=== PATIENT | female | born 1955 | race Caucasian/White ===

== ENCOUNTER → 2020-04-29 11:33 | Outpatient (CLI) | payer MEDICARE, OTHER, SELFPAY ==
--- NOTE | ~2020-04-29 | MM_ITS ---
EXAMINATION: MM screening [facility] BI w audrey HISTORY: Screening mammogram, family history of breast cancer in her sister. TECHNIQUE: Craniocaudal and mediolateral oblique 3-D tomosynthesis images were obtained and synthetic 2-D images were generated. CAD analysis was submitted and interpreted. COMPARISON: 03/02/2019, 01/13/2018, 12/28/2016 BREAST PARENCHYMAL COMPOSITION: The breasts are almost entirely fatty. FINDINGS: There is no evidence of suspicious mass, calcification, or architectural distortion to sugg est malignancy in either breast. There has been no suspicious interval change. IMPRESSION: 1. No mammographic evidence of malignancy. 2. Recommend routine screening mammography in one year. BI-RADS Category 1: Negative Reviewed, dictated and finalized at location A.
== END ==
PROVIDERS: PCP Internal Medicine; Visit Provider Internal Medicine
DX: Z12.31 Encounter for screening mammogram for malignant neoplasm of breast (principal)
CPT/HCPCS: 77063; 77067

== ENCOUNTER → 2020-05-08 09:02 | Outpatient (CLI) | payer MEDICARE, OTHER, SELFPAY ==
--- NOTE | ~2020-05-08 | XR_ITS ---
EXAMINATION: XR lumbar spine min 4V EXAM DATE: 05/08/2020 09:36 INDICATION: Failed spinal cord stimulator . TECHNIQUE: Lumber spine frontal, lateral, bilateral oblique projections. Coned down frontal and lat eral L5-S1 lumbar projections for interpretation. Comparison is made to prior examination from 009. FINDINGS: There is moderate thoracolumbar dextroscoliosis. Spine stimulator device identified with le ads projecting over the spinal canal, appear to be entering at the L1-2 level. There is about 7 mm an terolisthesis L4 on L5 without spondylolysis suspected. There is about 3 mm retrolisthesis L2 on L3. There is moderate disc disease at L1-2 and L5-S1. Mild to moderate at the other lumbar levels. There is moderate to severe lumbar facet arthropathy. Mild loss of the vertebral body heights from T11 thro ugh L1, probably chronic mild compression fractures. Sacrum, sacroiliac joints, sacral arcuate lines are intact. IMPRESSION: 1. Moderate thoracolumbar dextroscoliosis. 2. L4-5 grade 1-2 anterolisthesis. 3. Moderate to severe facet arthropathy. Reviewed, dictated and finalized at location B. DISTRIBUTION SYSTEM OPERATOR
--- NOTE | ~2020-05-08 | XR_ITS ---
EXAMINATION: XR thoracic spine 3V EXAM DATE: 05/08/2020 09:36 INDICATION: Failed spinal cord stimulator . TECHNIQUE: Frontal and lateral projections of the thoracic spine as well as lateral swimmers projecti on of the upper thoracic spine for interpretation. Comparison is made to prior examination from 016. FINDINGS: There is moderate thoracolumbar dextroscoliosis and mild to moderate lower thoracic levosc oliosis. There are 2 spinal stimulator leads, one at the inferior endplate of T6 level and the other at mid T8 level, projecting over the spinal canal. Mild to moderate disc disease at T9-T10 and modera te at T10-11 with some endplate osteophytes. There is aortic arteriosclerosis. Paraspinal soft tissue is unremarkable. IMPRESSION: 1. Spine stimulator leads at T6, T8 levels. 2. Thoracal lumbar scoliosis. 3. Mild to moderate lower thoracic spondylosis. Reviewed, dictated and finalized at location B. EDUCATIONAL AIDE
== END ==
PROVIDERS: PCP Internal Medicine; Visit Provider Pain Medicine Pain Medicine
DX: T85.192A Other mechanical complication of implanted electronic neurostimulator of spinal cord electrode (lead), initial encounter (principal); M41.85 Other forms of scoliosis, thoracolumbar region; M43.16 Spondylolisthesis, lumbar region; M47.816 Spondylosis without myelopathy or radiculopathy, lumbar region; Z96.82 Presence of neurostimulator; M47.814 Spondylosis without myelopathy or radiculopathy, thoracic region
CPT/HCPCS: 72072; 72110

== ENCOUNTER 2020-06-11 10:16 | Outpatient (CLI) | payer MEDICARE, OTHER, SELFPAY ==
--- NOTE | 2020-06-11 | ECG_ITS ---
Measurements Intervals Roe Rate: 65 P: -7 TN: 174 QRS: -4 QRSD: 99 T: 7 QT: 388 QTc: 404 Interpretive Statements SINUS RHYTHM INCOMPLETE RIGHT BUNDLE BRANCH BLOCK VOLTAGE CRITERIA FOR LVH BORDERLINE ECG Electronically Signed On 06-11-2020 10:47:50 APPLICATIONS PROCESSOR by Otoniel Briscoe D.O.
== END 2020-06-11 10:17 | disposition home or self-care (01) ==
LOC: ANHLAB 10:21
PROVIDERS: PCP Internal Medicine; Visit Provider Nurse Practitioner Family
DX: Z51.81 Encounter for therapeutic drug level monitoring (principal); Z79.899 Other long term (current) drug therapy; I45.10 Unspecified right bundle-branch block
CPT/HCPCS: 93005

== ENCOUNTER → 2020-12-30 10:58 | Outpatient (CLI) | payer MEDICARE, OTHER, SELFPAY ==
--- NOTE | ~2020-12-30 | DEXA_ITS ---
Bone Density Report Name: Sheryl Damico Age: 65 Sex: Female Ethnicity: White Date of : 1955 Indication: osteopenia; height loss; postmenopausal Referring Provider: Trace Perkins Study: Bone densitometry was performed. Exam Date: December 30, 2020 Accession number: [id number] Bone Density: Region BMD T-score Z-score Classification AP Spine (L3, L4) 0.948 -1.4 0.6 Osteopenia Femoral Neck (Left) 0.644 -1.8 -0.3 Osteopenia Total Hip (Left) 0.872 -0.6 0.7 Normal Femoral Neck (Right) 0.653 -1.8 -0.2 Osteopenia Total Hip (Right) 0.875 -0.5 0.7 Normal Total Hip Mean 0.874 -0.6 0.7 Normal World Health Organization criteria for BMD impression classify patients as: Normal (T-score at or above -1.0), Osteopenia (T-score between -1.0 and -2.5), or Osteoporosis (T-score at or below -2.5). 10-year Fracture Risk(1): Major Osteoporotic Fracture 9.5% Hip Fracture 1.3% Reported Risk Factors: [place] (), Neck BMD=0.644, BMI=35.3 (1) FRAX(R) Version 3.08. Fracture probability calculated for an untreated patient. Fracture probability may be lower if the patient has received treatment. Previous Exams: Region Exam Age BMD T-score BMD Change BMD Change Date g/cm2 vs Baseline vs Previous AP Spine(L3, L4) 12/30/2020 65 0.948 -1.4 -0.117* 0.024 02/21/2018 62 0.924 -1.6 -0.141 -0.054 12/24/2015 60 0.978 -1.1 -0.087* -0.050* 12/31/2008 53 1.028 -0.7 -0.037* 0.021 10/07/2007 52 1.008 -0.8 -0.058 -0.058 11/06/2005 50 1.065 -0.3 Total Hip(Left) 12/30/2020 65 0.872 -0.6 -0.266* -0.036 02/21/2018 62 0.908 -0.3 -0.231 -0.124 12/24/2015 60 1.032 0.7 -0.107* 0.042* 12/31/2008 53 0.990 0.4 -0.149* -0.100 10/07/2007 52 1.090 1.2 -0.049 -0.049 11/06/2005 50 1.139 1.6 Total Hip(Right) 12/30/2020 65 0.875 -0.5 -0.212* 0.009 02/21/2018 62 0.866 -0.6 -0.221 -0.091 12/24/2015 60 0.957 0.1 -0.130* -0.002 12/31/2008 53 0.960 0.1 -0.128* -0.118 10/07/2007 52 1.077 1.1 -0.010 -0.010 11/06/2005 50 1.087 1.2 *Denotes significance at 95% confidence level, LSC for AP Spine = 0.022 g/cm2, LSC for Total Hip = 0.027 g/cm2 Clinical Information Provided by Patient: Has used t
== END ==
PROVIDERS: PCP Internal Medicine; Visit Provider Obstetrics & Gynecology
DX: Z78.0 Asymptomatic menopausal state (principal); M85.89 Other specified disorders of bone density and structure, multiple sites
CPT/HCPCS: 77080

== ENCOUNTER 2021-03-26 11:53 | Outpatient (CLI) | payer MEDICARE, OTHER, SELFPAY | END 2021-03-26 11:54 | disposition home or self-care (01) | LOC: ANHAUDASC 11:54 | PROVIDERS: PCP Internal Medicine; Referring Provider Physician Assistant; Visit Provider Internal Medicine | DX: H90.3 Sensorineural hearing loss, bilateral (principal) | CPT/HCPCS: 92557; 92567 ==

== ENCOUNTER 2021-05-21 09:00 | Outpatient (RCR) | payer SELFPAY | END 2021-06-11 23:59 | disposition home or self-care (01) | LOC: ANHAUDASC 09:00 | PROVIDERS: PCP Internal Medicine; Visit Provider Internal Medicine | DX: Z46.1 Encounter for fitting and adjustment of hearing aid (principal) | CPT/HCPCS: 99199; V5261 ==

== ENCOUNTER → 2021-09-08 10:17 | Outpatient (CLI) | payer MEDICARE, OTHER, SELFPAY ==
--- NOTE | ~2021-09-08 | MM_ITS ---
EXAMINATION: MM screening jarett BI w audrey HISTORY: Screening TECHNIQUE: Craniocaudal and mediolateral oblique 3-D tomosynthesis images were obtained and synthetic 2-D images were generated. CAD analysis was submitted and interpreted. COMPARISON: Comparison to multiple prior studies sequentially, with oldest reviewed study dated 12/23. BREAST PARENCHYMAL COMPOSITION: The breasts are almost entirely fatty. FINDINGS: There is no evidence of suspicious mass, calcification, or architectural distortion to sugg est malignancy in either breast. There has been no suspicious interval change. IMPRESSION: 1. No mammographic evidence of malignancy. 2. Recommend routine screening mammography in one year. BI-RADS Category 1: Negative Reviewed, dictated and finalized at location A. DEVELOPER
== END ==
PROVIDERS: PCP Internal Medicine; Visit Provider Internal Medicine
DX: Z12.31 Encounter for screening mammogram for malignant neoplasm of breast (principal)
CPT/HCPCS: 77063; 77067

== ENCOUNTER 2023-09-21 10:22 | Outpatient (CLI) | payer MEDICARE, OTHER, SELFPAY ==
--- NOTE | ~2023-09-21 | MM_ITS ---
EXAMINATION: MM screening [facility] BI w audrey HISTORY: Screening TECHNIQUE: Craniocaudal and mediolateral oblique 3-D tomosynthesis images were obtained and synthetic 2-D images were generated. CAD analysis was submitted and interpreted. COMPARISON: Comparison to multiple prior studies sequentially, with oldest reviewed study dated 12/28. BREAST PARENCHYMAL COMPOSITION: Not dense: There are scattered areas of fibroglandular density. FINDINGS: There is no evidence of suspicious mass, calcification, or architectural distortion to sugg est malignancy in either breast. There has been no suspicious interval change. IMPRESSION: 1. No mammographic evidence of malignancy. 2. Recommend routine screening mammography in one year. BI-RADS Category 1: Negative Reviewed, dictated and finalized at location A.
== END 2023-09-21 10:23 ==
PROVIDERS: PCP Internal Medicine; Visit Provider Nurse Practitioner Obstetrics & Gynecology
DX: Z12.31 Encounter for screening mammogram for malignant neoplasm of breast (principal)
CPT/HCPCS: 77063; 77067

== ENCOUNTER 2023-10-13 10:49 | Outpatient (CLI) | payer MEDICARE, OTHER, SELFPAY ==
--- NOTE | ~2023-10-13 | XR_ITS ---
Left ankle Technique: AP and lateral views were obtained. Clinical History: Osteoarthritis Findings: No acute fracture or dislocation is seen. Osseous alignment is anatomic. Ankle mortise is w ell aligned. There is mild degenerative change of the tibiotalar joint. Soft tissues are otherwise un remarkable. Impression: Mild degenerative change of the tibiotalar joint. Reviewed, dictated and finalized at location . Impression: Mild degenerative change of the tibiotalar joint.
--- NOTE | ~2023-10-13 | XR_ITS ---
Right ankle Technique: AP and lateral views were obtained. Clinical History: Osteoarthritis Findings: No acute fracture or dislocation is seen. Osseous alignment is anatomic. Ankle mortise and other visualized joint spaces are preserved. Soft tissues are otherwise unremarkable. Impression: Unremarkable right ankle. Reviewed, dictated and finalized at location . Impression: Unremarkable right ankle.
--- NOTE | ~2023-10-13 | XR_ITS ---
Left foot Technique: AP, oblique, and lateral views were obtained. Clinical History: Osteoarthritis Findings: No acute fracture or dislocation is seen. Osseous alignment is anatomic. Joint spaces are p reserved without erosive or degenerative change. Soft tissues are unremarkable. Impression: Unremarkable left foot radiographs. Reviewed, dictated and finalized at location . Impression: Unremarkable left foot radiographs.
--- NOTE | ~2023-10-13 | XR_ITS ---
Right foot Technique: AP, oblique, and lateral views were obtained. Clinical History: Osteoarthritis Findings: No acute fracture or dislocation is seen. Osseous alignment is anatomic. There is mild dege nerative change of the first MTP joint and the third and fourth TMT joints. Soft tissues are unremark able. Impression: Mild degenerative changes, as above. Reviewed, dictated and finalized at location M. Impression: Mild degenerative changes, as above.
== END 2023-10-13 10:50 ==
PROVIDERS: PCP Internal Medicine; Visit Provider Internal Medicine
DX: M19.072 Primary osteoarthritis, left ankle and foot (principal); M19.071 Primary osteoarthritis, right ankle and foot
CPT/HCPCS: 73600; 73630

== ENCOUNTER 2024-01-28 14:24 | Outpatient (CLI) | payer MEDICARE, OTHER, SELFPAY ==
--- NOTE | ~2024-01-28 | XR_ITS ---
EXAM: XR knee LT 3V DATE: 01/28/2024 14:36 HISTORY: No injury, anterior, medial pain for 1 week . COMPARISON: None available. FINDINGS: Normal mineralization. No fracture or dislocation. No lytic or blastic lesion. Moderate me dial compartment joint space narrowing and osteophytosis. Mild patellofemoral and lateral compartment osteophytosis. Quadriceps enthesopathy. Loose body over the posterior joint recess. No erosion or pe riosteal change. Soft tissues within normal limits. Small volume knee joint fluid IMPRESSION: Tricompartmental osteoarthritis, moderate in the medial compartment. Loose joint body. Sm all knee joint effusion. Reviewed, dictated and finalized at location K. IMPRESSION: Tricompartmental osteoarthritis, moderate in the medial compartment . Loose joint body. Small knee joint effusion.
== END 2024-01-28 14:25 ==
LOC: MICIMG 14:27
PROVIDERS: PCP Internal Medicine; Visit Provider Internal Medicine
DX: M17.12 Unilateral primary osteoarthritis, left knee (principal); M23.42 Loose body in knee, left knee; M25.462 Effusion, left knee
CPT/HCPCS: 73562

== ENCOUNTER 2024-02-03 12:57 | Outpatient (CLI) | payer MEDICARE, OTHER, SELFPAY | END 2024-02-03 12:58 | PROVIDERS: PCP Internal Medicine; Visit Provider Internal Medicine | DX: M79.671 Pain in right foot (principal); M79.672 Pain in left foot | CPT/HCPCS: 73630 ==

== ENCOUNTER 2024-10-04 09:52 | Outpatient (CLI) | payer MEDICARE, OTHER, SELFPAY ==
--- NOTE | ~2024-10-04 | DEXA_ITS ---
Bone Density Report Name: CHRIS FLORES Age: 69 Sex: Female Ethnicity: White Date of : 1955 Indication: postmenopausal; screening for osteoporosis; height loss; Referring Provider: NUSRAT, PACHECO Chowdhury Study: Bone densitometry was performed. Exam Date: October 04, 2024 Accession number: [id number] Bone Density: Region BMD T-score Z-score Classification AP Spine(L1-L4) 1.087 0.4 2.5 Normal Femoral Neck (Left) 0.707 -1.3 0.5 Osteopenia Total Hip (Left) 0.848 -0.8 0.7 Normal Femoral Neck (Right) 0.689 -1.4 0.4 Osteopenia Total Hip (Right) 0.873 -0.6 0.9 Normal Total Hip Mean 0.860 -0.7 0.8 Normal World Health Organization criteria for BMD impression classify patients as: Normal (T-score at or above -1.0), Osteopenia (T-score between -1.0 and -2.5), or Osteoporosis (T-score at or below -2.5). 10-year Fracture Risk(1): Major Osteoporotic Fracture 9.0% Hip Fracture 1.2% Reported Risk Factors: [place] (), Neck BMD=0.689, BMI=34.7 (1) FRAX(R) Version 3.08. Fracture probability calculated for an untreated patient. Fracture probability may be lower if the patient has received treatment. Clinical Information Provided by Patient: Has used the following medications: Vitamin D, Calcium Patient maximum height was 65.5 Menopause Age: 49 No regular weight bearing exercise Drinks caffeinated beverages Onset of menses at age 15 Number of children 3 Impression: The patient has low bone mass, based on the Right Femoral Neck T-score. The patient has an estimated ten-year risk of hip fracture of 1.2% and an estimated ten-year risk of major fracture of 9%, based on the WHO FRAX algorithm. Discussion: BONE DENSITY IS LOW AT ONE OR MORE SKELETAL SITES. This patient's lowest T-score is low at one or more skeletal sites. It meets the World Health Organization's (WHO) criteria for ?low bone mass? (T-score between -1.0 and -2.5). The patient's 10-year risk of fracture as calculated by FRAX is less than the threshold where pharmacological therapy is recommended by the National Osteoporosis Foundation (NOF). However, all treatment decisions require clinical judgment and consideration of individual patient factors, including patient preferences, comorbidities, previous drug use, risk factors not captured in the FRAX model (e.g., frailty, falls, vitamin D deficiency, increased bone turnover, interval significant decline in bone density) and possible under or overestimation of fracture risk by FRAX. The patient should follow a healthful lifestyle (good nutrition with adequate calcium and vitamin D, and appropriate weight-bearing exercise). Follow-Up: Consider repeating this study in 2 to 3 years to reassess this patient's status, or sooner if there is some new clinical indication. Reported by: MATEUS on 10/04/2024 10:26:00 AM. Reviewed, dictated and finalized at location A. [facility]
--- OUTSIDE RECORDS SUMMARY | 2024-10-04 10:53 | XMS_ITS | Continuity of Care Document ---
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 Location Location Details Encounter Type Encounter Number Reason For Visit Attending Provider ADM Date DC Date Status Disposition Source [facility] Outpatient Encounter [id number] 5 03/09 [facility] ALYCIA N
--- OUTSIDE RECORDS SUMMARY | 2024-10-04 10:53 | XMS_ITS ---
Author Organization [facility] Address [facility] [address] [address] Care Team Providers Care Hockey Instructor Name Role Phone Jose Raul Fregoso DO Primary Care Provider Alvaro Sneed Unavailable [phone] Migration, Provider Unavailable Unavailable REASON FOR VISIT EMR-Chip Social History Sex Assigned At : Social History Observation Description Sex Assigned At Female Encounters Encounter Location Date Provider Diagnosis [facility] [place] [id number] [facility] [address] [address] 11/20/2023 Provider Migration Plan Of Treatment Next Appt Details Provider Name:Alvaro leonard, 11/24/2024 09:45:00 AM, [address] [facility] [address], [facility] [address], [place], [address], Progress Notes * MONTEZDENYS HELLEROB: 5 (68 yo F)Acc No.[id number]:11/20/2023 Patient: CHRIS LEVY :1955 A ge:68 Y S ex:Female Address:[address] [place] [address], [id number] Subjective: * Chief Complaints: * E MR-Chip * Medical History: * Surgical History: * Hospitalization/Major Diagno stic Procedure: * Medications: Objective: * Vitals: * Physical Examination: Assessment: Plan: * Treatment: * Procedure Codes: * true * Date: Generated for Printi ng/Faxing/eTransmitting on: 0 10/04/2024 10:52 AM CDT
--- OUTSIDE RECORDS SUMMARY | 2024-10-04 10:53 | XMS_ITS ---
Author Organization [facility] [employer] Address [address] [facility] [address] [place] [address] Care Team Providers Care Corner Bead Operator Name Role Phone Jose Raul Fregoso DO Primary Care Provider UnavailAlvaro Lopez Unavailable [phone] Allergies No Known Allergies REASON FOR VISIT follow up visit, medication evaluation Medications Medication SIG (Take, Route, Frequency, Duration) Notes Start Date End Date Status Pantoprazole Sodium 40 MG Oral 11/17/2023 Active Valsartan 320 MG 1 tablet Oral Once a day 11/17/19 24 Active Simvastatin 40 MG Oral 11/17/2023 A ctive buPROPion HCl ER (XL) 300 MG 1 tablet every morning Oral Once a day for 90 days take with 150mg tablet- total dose 450mg 11/17/2023 Active buPROPion HCl ER (XL) 150 MG 1 tablet in the morning Oral Once a day for 90 days 11/17/2023 Active Cymbalta 60 MG 1 capsule Oral Once a day for 90 days 11/17/2023 Active Carvedilol 25 MG Oral 11/17/2023 Ac tive Gabapentin 300 MG Oral 11/17/2023 A ctive Lisinopril 10 MG Oral 11/17/2023 Ac tive Social History Sex Assigned At : Social History Observation Description Sex Assigned At Female Vital Signs Blood pressure systolic 184 mm Hg 05/30/20 24 Blood pressure diastolic 91 mm Hg 024 Heart Rate 65 /min 05/30/2024 Height 64.00 in 05/30/2024 Weight 200.0 lbs 05/30/2024 BMI 34.33 kg/m2 05/30/2024 Height-cm 162.56 cm 05/30/2024 Weight-kg 90.72 kg 05/30/2024 Encounters Encounter [facility] [address] [place] [address] 05/30/2024 Alvaro Quevedo Major depressive disorder, recurrent, mild F33.0 and Generalized anxiety disorder F41.1 Assessments Encounter Date Diagnosis (ICD Code) Assessment Notes Treatment Notes Treatment Clinical Notes Section Notes 05/30/2024 Major depressive disorder, recurrent, mild (ICD-10 - F33.0) 1. Adjustment Disorder with Depressed Mood: - Patient is experiencing grief due to the loss of her dog and moving from her long-time home. - Able to function in daily activities but reports feeling emotional when discussing her dog. Plan: - Continue current medications: bupropion XL 450 mg and duloxetine 60 mg daily. - Monitor for any worsening of depressive symptoms and consider adjusting medication if needed. - Encourage the patient to seek support from friends and family during this difficult time. 2. Medication Refill and Follow-up: - Patient will be in [place] for an extended period and requires medication refills. Plan: - Send prescriptions to [facility] for bupropion XL and duloxetine. - Schedule a follow-up appointment in 6 months or sooner if the patient experiences any worsening of symptoms or has concerns about medications. 05/30/2024 Generalized anxiety disorder (ICD-10 - F41.1) stable 1. Adjustment Disorder with Depressed Mood: - Patient is experiencing grief due to the loss of her dog and moving from her long-time home. - Able to function in daily activities but reports feeling emotional when discussing her dog. Plan: - Continue current medications: bupropion XL 450 mg and duloxetine 60 mg daily. - Monitor for any worsening of depressive symptoms and consider adjusting medication if needed. - Encourage the patient to seek support from friends and family during this difficult time. 2. Medication Refill and Follow-up: - Patient will be in [place] for an extended period and requires medication refills. Plan: - Send prescriptions to [facility] for bupropion XL and duloxetine. - Schedule a follow-up appointment in 6 months or sooner if the patient experiences any worsening of symptoms or has concerns about medications. Plan Of Treatment Medication Medication Name Sig Start Date Stop Date Notes buPROPion HCl ER (XL) 300 MG 1 tablet ev winter morning Oral Once a day for 90 days 11/17/2023 buPROPion HCl ER (XL) 150 MG 1 tablet in the morning Oral Once a day for 90 days 11/17/2023 Cymbalta 60 MG 1 capsule Oral Once a day for 90 days 11/17/2023 Treatment Notes Assessment Notes Generalized anxiety disorder stable Next Appt Details Follow Up: 6 Months, Reason: f/u depression, anxiety Provider Name:Alvaro leonard, 11/24/2024 09:45:00 AM, [address], [facility] [address], [place], [address], Progress Notes * DENYS FLORESOB: 5 (68 yo F)Acc No.[id number]:05/30/2024 Patient: CHRIS LEVY Provider: PAUL FORTE :1955 A ge:68 Y S ex:Female Date:05/30/2024 Address:[address] [place] [address] , [place] [facility] Pcp:Jose Raul Fregoso DO Subjective: * Chief Complaints: * F ollow up visit, medication evaluation * HPI: D epression screening: Chief complaint- Anger, grief, high blood pressure. the note is transcribed using speech recognition software. It is a reflection of a visit with the patient. It might have some inaccuracy, including medication names and transcribing errors, though efforts have been made to correct them. The patient reports experiencing anger and grief due to the loss of her dog in November and moving from her long-time residence of 34 years. She acknowledges that her mood symptoms are situational and has been able to function in her daily activities. The patient mentions that talking about her dog brings up feelings of sadness, but she is otherwise doing well. She is enjoying [facility], has a good social [place], and recently got a new puppy, which has provided some comfort. The patient also reports having high blood pressure, which has been difficult to control despite being on medication. She experiences pain from her back and peripheral neuropathy in her feet and ankles, which she believes contributes to her elevated blood pressure. The patient is currently taking duloxetine and bupropion for her mood symptoms and is satisfied with her medication regimen. PHQ-9 L ittle interest or pleasure in doing things S everal days, F eeling down, depressed, or hopeless N ot at all, T rouble falling or staying asleep, or sleeping too much N ot at all, F eeling tired or having little energy S everal days, P oor appetite or overeating N ot at all, F eeling bad about yourself or that you are a failure, or have let yourself or your family down N ot at all, T rouble concentrating on things, such as reading the newspaper or watching television N ot at all, M oving or speaking so slowly that other people could have noticed; or the opposite, being so fidgety or restless that you have been moving around a lot more than usual N ot at all, T houghts that you would be better off or of hurting yourself in some way N ot at all, T otal Score 2 , Interpretation M inimal Depression. I ntervention D epression Screening Findings?Negative, S uicide Risk Assessment Performed 1 07/30/2023 . 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 , Onset: years ago. * Medical History: * Surgical History: * Hospitalization/Major Diagno stic Procedure: * Medications: T akingCymbalta 60 MG Capsule Delayed Release Particles Oral Simvastatin 40 MG Tablet Oral Valsartan 320 MG Tablet 1 tablet Oral Once a day buPROPion HCl ER (XL) 150 MG Tablet Extended Release 24 Hour Oral Pantoprazole Sodium 40 MG Tablet Delayed Release Oral Lisinopril 10 MG Tablet Oral Gabapentin 300 MG Capsule Oral buPROPion HCl ER (XL) 300 MG Tablet Extended Release 24 Hour Oral Carvedilol 25 MG Tablet Oral Taking Cymbalta 60 MG Capsule Delayed Release Particles Oral Taking Simvastatin 40 MG Tablet Oral Taking Valsartan 320 MG Tablet 1 tablet Oral Once a day Taking buPROPion HCl ER (XL) 150 MG Tablet Extended Release 24 Hour Oral Taking Pantoprazole Sodium 40 MG Tablet Delayed Release Oral Taking Lisinopril 10 MG Tablet Oral Taking Gabapentin 300 MG Capsule Oral Taking buPROPion HCl ER (XL) 300 MG Tablet Extended Release 24 Hour Oral Taking Carvedilol 25 MG Tablet Oral DiscontinuedFLUZONE HIGH-DOSE QUAD (PF) 240 MCG/0.7 ML IM SYRINGE , Notes to Pharmacist: *Reorder from [facility] for eRx and Interaction Alerts*prednisoLONE Acetate 1 % Suspension Ophthalmic Valsartan 80 MG Tablet Oral Doxycycline Hyclate 100 MG Capsule Oral Zxagxubl-Qmckrbrtk-Sniojcxa [id number] Suspension Ophthalmic Losartan Potassium 100 MG Tablet Oral Candesartan Cilexetil 32 MG Tablet Oral Betamethasone Valerate 0.1 % Cream External DULoxetine HCl 60 MG Capsule Delayed Release Particles Oral Ketoconazole 2% Cream External CYCLOSPORINE 0.05 % EYE DROPS IN A DROPPERETTE , Notes to Pharmacist: *Reorder from [facility] for eRx and Interaction Alerts*Cyclobenzaprine HCl 10 MG Tablet Oral Celecoxib 200 MG Capsule Oral Medication List reviewed and reconciled with the patientDiscontinued FLUZONE HIGH-DOSE QUAD (PF) 240 MCG/0.7 ML IM SYRINGE , Notes to Pharmacist: *Reorder from [facility] for eRx and Interaction Alerts*Discontinued prednisoLONE Acetate 1 % Suspension Ophthalmic Discontinued Valsartan 80 MG Tablet Oral Discontinued Doxycycline Hyclate 100 MG Capsule Oral Discontinued Pmbmbyui-Ronpwnjil-Hhcisqsp 3.5-36296-1.1 Suspension Ophthalmic Discontinued Losartan Potassium 100 MG Tablet Oral Discontinued Candesartan Cilexetil 32 MG Tablet Oral Discontinued Betamethasone Valerate 0.1 % Cream External Discontinued DULoxetine HCl 60 MG Capsule Delayed Release Particles Oral Discontinued Ketoconazole 2% Cream External Discontinued CYCLOSPORINE 0.05 % EYE DROPS IN A DROPPERETTE , Notes to Pharmacist: *Reorder from [facility] for eRx and Interaction Alerts*Discontinued Cyclobenzaprine HCl 10 MG Tablet Oral Discontinued Celecoxib 200 MG Capsule Oral Medication List reviewed and reconciled with the patient * Allergies: N .K.D.A.no[Allergies Verified] Objective: * Vitals: B P:184/91mm Hg, HR:65/min, Wt:200.0lbs, Wt-k.72 kg, Ht: 64.00 in, Ht-cm: 162.56 cm, BMI:34.33Index, Body Surface Area: 2.02. * Examination: P sychiatry: Appearance: w ell-groomed, well-nourished, .... Affect / mood: s ad, tearful when she talks about her dog.? Attention: g ood. Attitude: c ooperative. Suicidal ideation: n one. Memory status: n o impairment noted. Degree of awareness of surroundings: w ithin normal limits.? Delusions: n o. Hallucinations: n o. Insight: g ood. Intellectual functioning: n o impairment noted. Judgement: g ood. Orientation: a wake, alert and oriented x 3. Perceptual disorders: n o perceptual disorder noted. Psychomotor activity: w ithin normal range. Speech / language: a ppropriate pitch/modulation, clear and coherent, normal rate, volume, and articulation (RVR), proper grammar used. Thought content: a ppropriate. Thought process: i ntact. G eneral Examination: - Mental Status Examination: - Patient reports feelings of anger and grief related to significant life changes, including the loss of a long-term pet and moving from a long-term residence. - Expresses improvement in mood when not discussing the pet. - Able to function in daily activities and expresses enjoyment in new living arrangements and hobbies. - No reported issues with medication efficacy in managing psychiatric symptoms. - Physical Examination: - Patient reports chronic pain issues including back pain and peripheral neuropathy in feet and ankles. - High blood pressure noted, with recent adjustments in medication by another provider. Assessment: * Assessment: 1. M tedor depressive disorder, recurrent, mild - F33.0 (Primary) 2 . G eneralized anxiety disorder - F41.1 1. Adjustment Disorder with Depressed Mood: - Patient is experiencing grief due to the loss of her dog and moving from her long-time home.- Able to function in daily activities but reports feeling emotional when discussing her dog.Plan:- Continue current medications: bupropion XL 450 mg and duloxetine 60 mg daily.- Monitor for any worsening of depressive symptoms and consider adjusting medication if needed.- Encourage the patient to seek support from friends and family during this difficult time.2. Medication Refill and Follow-up:- Patient will be in [place] for an extended period and requires medication refills.Plan:- Send prescriptions to [facility] for bupropion XL and duloxetine.- Schedule a follow-up appointment in 6 months or sooner if the patient experiences any worsening of symptoms or has concerns about medications. Plan: * Treatment: 2. G eneralized anxiety disorder Notes: stable * Procedure Codes: 9 6127 BEHAV ASSMT W/SCORE & DOCD/STAND [id number] VISIT COMPLEXITY INHERENT TO ONGOING CARE RELATED TO A PATIENT'S SINGLE, SERIOUS CONDITION OR A COMPLEX CONDITION * Preventive Medicine: Counseling: B P Management: F IRST HYPERTENSIVE BP READING FOLLOW-UP PLAN: F ollow-up 1 month Follow up with your PCP, Estrada MAXWELL RECOMMENDATION: Estrada [facility], REFERRAL TO ALTERNATIVE / PRIMARY CARE PROVIDER: Aishwarya [facility] to [facility] ____. * Follow Up: 6 Months (Reason: f/u depression, anxiety) * Billing Information: * Visit Code: 68576 OFFICE OUTPATIENT VISIT 25 MINUTES DETAILED HISTORY AND EXAM/MODERATE MEDICAL DECISION MAKING. * Procedure Codes: 92533 BEHAV ASSMT W/SCORE & DOCD/STAND INSTRUMENT. G2211 VISIT COMPLEXITY INHERENT TO ONGOING CARE RELATED TO A PATIENT'S SINGLE, SERIOUS CONDITION OR A COMPLEX CONDITION. * TIVE RETOUCHER Sign off status: Completed true * Provider: PAUL FORTE Date: 1 07/30/2023 Generated for Mo horowitz/Cameron/Jay on: 0 10/04/2024 10:53 AM CDT History and Physical Notes * HPI (History of Present Illness) Category Sub-Category Detail Notes Category Not es History of Presenting Problem Depression symptoms worse recently, her dog and she moved from her [facility] home. , Onset: years ago Depression screening PHQ-9 Little inte rest or pleasure in doing things: Several days Feeling down, depressed, or hopeless: No t at all Trouble falling or staying asleep, or sl eeping too much: Not at all Feeling tired or having little energy: S everal days Poor appetite or overeating: Not at all Feeling bad about yourself o r that you are a failure, or have let yourself or your family down: Not at all Trouble concentrating on thi ngs, such as reading the newspaper or watching television: Not at all Moving or speaking so slowly that other people could have noticed; or the opposite, being so fidgety or restless that you have been moving around a lot more than usual: Not at all Thoughts that you would be b barbara off or of hurting yourself in some way: Not at all Total Score: 2 Interpretation: Minimal Depression Intervention Depression Screening Findings: N egative Suicide Risk Assessment Performed: 05/30 Examination Category Sub-Category Detail Notes Category Not es Psychiatry Appearance: well-groomed, well-nourished , ... Attitude: cooperative Psychomotor activity: within normal rang e Attention: good Degree of awareness of surroundings: wit hin normal limits Orientation: awake, alert and jayson ented x 3 Affect / mood: sad, tearful when sh e talks about her dog Speech / language: appropriate pitch/mo dulation, clear and coherent, normal rate, volume, and articulation (RVR), proper grammar used Insight: good Judgement: good Thought process: intact Thought content: appropriate Perceptual disorders: no perceptual diso rder noted Suicidal ideation: none Intellectual functioning: no impairment noted Memory status: no impairment noted Delusions: no Hallucinations: no General Examination - Mental Status Examination: - Patient reports feelings of anger and grief related to significant life changes, including the loss of a long-term pet and moving from a long-term residence. - Expresses improvement in mood when not discussing the pet. - Able to function in daily activities and expresses enjoyment in new living arrangements and hobbies. - No reported issues with medication efficacy in managing psychiatric symptoms. - Physical Examination: - Patient reports chronic pain issues including back pain and peripheral neuropathy in feet and ankles. - High blood pressure noted, with recent adjustments in medication by another provider.
--- OUTSIDE RECORDS SUMMARY | 2024-10-04 10:53 | XMS_ITS | Patient Health Record ---
Author Organization [facility] [employer] [facility] Address [address] [place] [address] Care Team Providers Care Power Reactor Supervisor Name Role Phone Jose Raul Fregoso DO Primary Care Provider Alvaro Sneed Unavailable [phone] Migration, Provider Unavailable Unavailable Allergies No Known Allergies Reason For Referral No Information Medications Medication SIG (Take, Route, Frequency, Duration) Notes Start Date End Date Status Pantoprazole Sodium 40 MG Oral 11/17/2023 Active Simvastatin 40 MG Oral 11/17/2023 A ctive Lisinopril 10 MG Oral 11/17/2023 Ac tive Carvedilol 25 MG Oral 11/17/2023 Ac tive DULoxetine HCl 60 MG TAKE 1 CAPSULE BY M OUTH ONCE A DAY for 90 Active buPROPion HCl ER (XL) 300 MG 1 tablet every morning Oral Once a day for 90 days take with 150mg tablet- total dose 450mg 11/17/2023 Active Valsartan 320 MG 1 tablet Oral Once a day 11/17/19 24 Active buPROPion HCl ER (XL) 150 MG 1 tablet in the morning Oral Once a day for 90 days 11/17/2023 Active Gabapentin 300 MG Oral 11/17/2023 A ctive Immunizations Vaccine Route Administration Date Status Comme nts Zoster Unknown 02/02/2013 Administered Zoster Unknown 03/06/2020 Administered Pfizer Biontech Covid-19 Vac cine 2nd dose Unknown 08/30/2020 Administered Pfizer Biontech Covid-19 Vac cine 2nd dose Unknown 09/20/2020 Administered Pfizer Biontech Covid-19 Vac cine 2nd dose Unknown 06/02/2021 Administered Novel [id number], preservative free Unknown 03/13/2018 Administered Influenza, seasonal, injecta ble, preservative free, 3 yrs and above Unknown 04/18/2013 Administered Influenza, seasonal, injecta ble, preservative free, 3 yrs and above Unknown 04/12/2017 Administered Influenza, high-dose seasona l, quadrivalent, preservative free >65 yrs Unknown 04/29/2020 Administered Influenza, high dose seasonal Unknown 04/18/2019 Admini stered Social History Sex Assigned At : Social History Observation Description Sex Assigned At Female Vital Signs Heart Rate 65 /min 05/30/2024 Height-cm 162.56 cm 05/30/2024 Blood pressure diastolic 91 mm Hg 05/30/2024 Weight-kg 90.72 kg 05/30/2024 Height 64.00 in 05/30/2024 Blood pressure systolic 184 mm Hg 05/30/2024 Weight 200.0 lbs 05/30/2024 BMI 34.33 kg/m2 05/30/2024 Encounters Encounter Location Date Provider Diagnosis [address] [address] 11/17/2023 Alvaro Quevedo Generalized anxiety disorder F41.1 and Major depressive disorder, recurrent, mild F33.[address] [address] 05/30/2024 Alvaroelif Meieroza Major depressive disorder, recurrent, mild F33.0 and Generalized anxiety disorder F41.[address] [address] 11/20/2023 Provider Migration [facility] [address] 11/21/2023 Provider Migration Assessments Encounter Date Diagnosis (ICD Code) Assessment [...] and Follow-up: - Patient will be in [place] for an extended period and requires medication refills. Plan: - Send prescriptions to [facility] for bupropion XL and duloxetine. - [...] and Follow-up: - Patient will be in [place] for an extended period and requires medication refills. Plan: - Send prescriptions to [facility] for bupropion XL and duloxetine. - Schedule a follow-up appointment in 6 months or sooner if the patient experiences any worsening of symptoms or has concerns about medications. 11/17/2023 Major depressive disorder, recurrent, mild (ICD-10 - F33.0) 11/17/2023 Generalized anxiety disorder (ICD-10 - F41.1) Plan Of Treatment Next Appt Details Provider Name:Alvaro leonard, 11/24/2024 09:45:00 AM, [facility], [facility] [address], [place], [address], Insurance Providers Payer Name Payer Address Payer Phone Subscriber Number Group Number Insured Name Patient Relationship to Insured Coverage Start Date Coverage End Date Medicare-[place] Medicare [address] [place] [phone] [id number] CHRIS FLORES Self - patient is the insured For Life - Medicare Supplement [address] [place] [address] [id number] SANDRA CHRIS Self - patient is the insured Medical (General) History Medical History History ICD Code Problems: Generalized anxiety disorder Mild recurrent major depression , Surgical History Surgery Date(Month/Year) Tonsilectomy/adenoids 12/03/1964
--- OUTSIDE RECORDS SUMMARY | 2024-10-04 10:53 | XMS_ITS ---
Author Organization [facility] As [employer] Address [address] [place] [address] Care Team Providers Care Agriculture Instructor Name Role Phone Jose Raul Fregoso DO Primary Care Provider UnavailAlvaro Lopez Unavailable [phone] Migration, Provider Unavailable Unavailable REASON FOR VISIT EMR-Chip Medications Medication SIG (Take, Route, Frequency, Duration) Notes Start Date End Date Status Doxycycline Hyclate 100 MG Oral 11/17/2023 Active CYCLOSPORINE 0.05 % EYE DROPS IN A DROPPERETTE *Reorder from [employer] for eRx and Interaction Alerts* 11/17/2023 Active Ketoconazole 2% External 11/17/2023 Act rupa Lisinopril 10 MG Oral 11/17/2023 Ac tive Cymbalta 60 MG Oral 11/17/2023 Acti ve Losartan Potassium 100 MG Oral 11/17/2023 Active DULoxetine HCl 60 MG Oral 11/17/2023 Active Betamethasone Valerate 0.1 % External 11/17/2023 Active Candesartan Cilexetil 32 MG Oral 11/17/2023 Active Pantoprazole Sodium 40 MG Oral 11/17/2023 Active Valsartan 320 MG Oral 11/17/2023 Ac tive Celecoxib 200 MG Oral 11/17/2023 Ac tive Carvedilol 25 MG Oral 11/17/2023 Ac tive Drrpfmoc-Xrczrrxif-Qarw meth 3.5-69493-8.1 Ophthalmic 11/17/2023 Active Gabapentin 300 MG Oral 11/17/2023 A ctive buPROPion HCl ER (XL) 300 MG Oral 11/17/2023 Active Cyclobenzaprine HCl 10 MG Oral 11/17/2023 Active prednisoLONE Acetate 1 % Ophthalmic 11/17/2023 Active buPROPion HCl ER (XL) 150 MG Oral 11/17/2023 Active Valsartan 160 MG Oral 11/17/2023 Ac tive FLUZONE HIGH-DOSE QUAD (PF) 240 MCG/0.7 ML IM SYRINGE *Reorder from [facility] for eRx and Interaction Alerts* 11/17/2023 Active Simvastatin 40 MG Oral 11/17/2023 A ctive Valsartan 80 MG Oral 11/17/2023 Act rupa Social History Sex Assigned At : Social History Observation Description Sex Assigned At Female Encounters Encounter Location Date Provider Diagnosis [facility] [address] [address] 11/21/2023 Provider Migration Plan Of Treatment Next Appt Details Provider Name:Alvaro leonard, 11/24/2024 09:45:00 AM, [address], [facility] [address], [address], Progress Notes * DENYS FLORESOB: 5 (68 yo F)Acc No.[id number]:11/21/2023 Patient: CHRIS LEVY :1955 A ge:68 Y S ex:Female Address:[address] [place] [address], [place] [address] Subjective: * Chief Complaints: * E MR-Chip * Medical History: * Mold Laminator History: M igrated GYNHistory M igrated GYNHistory:: Abnormal Pap: N Modified Date:03/26/2021,Age at First Child: 84 Modified Date:06/24/2023,Age at Menarche: 15 Modified Date:03/26/2021,Colonoscopy: 08/06/2017 Modified Date:03/26/2021,Date of Last Colonoscopy: 08/06/2017 Modified Date:03/26/2021,Date of Last Mammogram: 12/09/2019 Modified Date:03/26/2021,Date of Last Pap Smear: 12/09/2019 Modified Date:03/26/2021,LMP: Unknown Modified Date:03/26/2021,Sexual Problems: N Modified Date:03/26/2021,Sexually Active: N Modified Date:10/20/2021, . * Surgical History: T onsilectomy/adenoids 12/03/1964 * Hospitalization/Major Diagno stic Procedure: * Family History: F ather: Diabetes mellitus . M aternal Grandmother: Malignant neoplastic disease . S ister: Anxiety disorder , Depressive disorder , Morbid obesity , Malignant neoplastic disease . * Social History: M igrated Social History: M igrated Social History: Alcohol Intake: Heavy 06/24/2023,Tobacco Years: Unknown if ever smoked 10/20/2021. * Medications: T akingCymbalta 60 MG Capsule Delayed Release Particles Oral Simvastatin 40 MG Tablet Oral FLUZONE HIGH-DOSE QUAD 2020-21 (PF) 240 MCG/0.7 ML IM SYRINGE , Notes to Pharmacist: *Reorder from [employer] for eRx and Interaction Alerts*prednisoLONE Acetate 1 % Suspension Ophthalmic Valsartan 160 MG Tablet Oral buPROPion HCl ER (XL) 150 MG Tablet Extended Release 24 Hour Oral Pantoprazole Sodium 40 MG Tablet Delayed Release Oral Valsartan 80 MG Tablet Oral Doxycycline Hyclate 100 MG Capsule Oral Lisinopril 10 MG Tablet Oral Oqcgeitx-Qumpvrifl-Estvdnke 3.5-56254-0.1 Suspension Ophthalmic Losartan Potassium 100 MG Tablet Oral Candesartan Cilexetil 32 MG Tablet Oral Gabapentin 300 MG Capsule Oral Betamethasone Valerate 0.1 % Cream External DULoxetine HCl 60 MG Capsule Delayed Release Particles Oral Ketoconazole 2% Cream External CYCLOSPORINE 0.05 % EYE DROPS IN A DROPPERETTE , Notes to Pharmacist: *Reorder from [employer] for eRx and Interaction Alerts*Cyclobenzaprine HCl 10 MG Tablet Oral buPROPion HCl ER (XL) 300 MG Tablet Extended Release 24 Hour Oral Valsartan 320 MG Tablet Oral Carvedilol 25 MG Tablet Oral Celecoxib 200 MG Capsule Oral Taking Cymbalta 60 MG Capsule Delayed Release Particles Oral Taking Simvastatin 40 MG Tablet Oral Taking FLUZONE HIGH-DOSE QUAD 2020-21 (PF) 240 MCG/0.7 ML IM SYRINGE , Notes to Pharmacist: *Reorder from [employer] for eRx and Interaction Alerts*Taking prednisoLONE Acetate 1 % Suspension Ophthalmic Taking Valsartan 160 MG Tablet Oral Taking buPROPion HCl ER (XL) 150 MG Tablet Extended Release 24 Hour Oral Taking Pantoprazole Sodium 40 MG Tablet Delayed Release Oral Taking Valsartan 80 MG Tablet Oral Taking Doxycycline Hyclate 100 MG Capsule Oral Taking Lisinopril 10 MG Tablet Oral Taking Qmohvmqv-Scomzylnq-Oqzmqgan 3.5-73249-8.1 Suspension Ophthalmic Taking Losartan Potassium 100 MG Tablet Oral Taking Candesartan Cilexetil 32 MG Tablet Oral Taking Gabapentin 300 MG Capsule Oral Taking Betamethasone Valerate 0.1 % Cream External Taking DULoxetine HCl 60 MG Capsule Delayed Release Particles Oral Taking Ketoconazole 2% Cream External Taking CYCLOSPORINE 0.05 % EYE DROPS IN A DROPPERETTE , Notes to Pharmacist: *Reorder from [facility] for eRx and Interaction Alerts*Taking Cyclobenzaprine HCl 10 MG Tablet Oral Taking buPROPion HCl ER (XL) 300 MG Tablet Extended Release 24 Hour Oral Taking Valsartan 320 MG Tablet Oral Taking Carvedilol 25 MG Tablet Oral Taking Celecoxib 200 MG Capsule Oral Objective: * Vitals: * Physical Examination: Assessment: Plan: * Treatment: * Procedure Codes: * true * Date: Generated for Mo horowitz/Cameron/Jay on: 0 10/04/2024 10:52 AM [facility]
== END 2024-10-04 09:53 | disposition home or self-care (01) ==
LOC: ANHIMG 09:54
PROVIDERS: PCP Internal Medicine; Visit Provider Nurse Practitioner
DX: Z13.820 Encounter for screening for osteoporosis (principal); M85.852 Other specified disorders of bone density and structure, left thigh; M85.851 Other specified disorders of bone density and structure, right thigh
CPT/HCPCS: 77080

== ENCOUNTER 2025-01-17 10:51 | Outpatient (CLI) | payer MEDICARE, OTHER, SELFPAY ==
--- NOTE | ~2025-01-17 | MM_ITS ---
EXAMINATION: MM screening jarett BI w audrey HISTORY: Screening TECHNIQUE: Craniocaudal and mediolateral oblique 3-D tomosynthesis images were obtained and synthetic 2-D images were generated. CAD analysis was submitted and interpreted. COMPARISON: Comparison to multiple prior studies sequentially, with oldest reviewed study dated 12/28. BREAST PARENCHYMAL COMPOSITION: Not Dense: The breasts are almost entirely fatty. FINDINGS: There is no evidence of suspicious mass, calcification, or architectural distortion to sugg est malignancy in either breast. There has been no suspicious interval change. IMPRESSION: 1. No mammographic evidence of malignancy. 2. Recommend routine screening mammography in one year. BI-RADS Category 1: Negative Reviewed, dictated and finalized at location B.
== END 2025-01-17 10:52 | disposition home or self-care (01) ==
PROVIDERS: PCP Nurse Practitioner; Visit Provider Internal Medicine
DX: Z12.31 Encounter for screening mammogram for malignant neoplasm of breast (principal)
CPT/HCPCS: 77063; 77067

== ENCOUNTER 2025-06-14 13:46 | Outpatient (CLI) | payer MEDICARE, OTHER, SELFPAY ==
--- NOTE | ~2025-06-14 | XR_ITS ---
XR lumbar spine 2-3V Indication: M54.5 - Low back pain Comparison: None Findings: Dextroconvex scoliosis. Moderate loss of vertebral height throughout. Grade 1 anterolisthesis of L4 on L5. No acute fracture. Severe loss of disc height throughout. Soft tissues unremarkable Impression: No acute abnormality. Reviewed, dictated and finalized at location P. CAR OPERATOR Impression: No acute abnormality.
--- NOTE | ~2025-06-14 | XR_ITS ---
EXAM/PROCEDURE: XR thoracic spine 3V HISTORY: M54.9 - Dorsalgia, unspecified COMPARISON: None available. TECHNIQUE: Thoracic spine x-rays FINDINGS: Mild diffuse degenerative, kyphotic and osteopenic changes throughout the thoracic spine. No gross acute or aggressive bone or soft tissue process seen. IMPRESSION: Mild diffuse degenerative changes and other findings as above. Reviewed, dictated and finalized at location A. SFORMATION MANAGER
== END 2025-06-14 13:47 | disposition home or self-care (01) ==
LOC: MICIMG 13:48
PROVIDERS: PCP Internal Medicine; Visit Provider Internal Medicine
DX: M47.894 Other spondylosis, thoracic region (principal); G89.29 Other chronic pain
CPT/HCPCS: 72072; 72100